=== PATIENT | male | born 2000 | race Caucasian/White ===

== ENCOUNTER 2023-04-30 03:31 | Emergency (ER) | payer SELFPAY ==
[2023-04-30 03:40] VITALS: BP 131/86; PULSE 74; RESP 16; TEMP 37.2; O2SAT 100
--- NOTE | 2023-04-30 04:09 | ED.GENADULT ---
HPI - General Adult General Chief complaint: Psychiatric Symptoms <Ladarius Cuevas MD - Last Filed: 04/30/23 07:00> Stated complaint: si <Ladarius Cuevas MD - Last Filed: 04/30/23 07:00> Time Seen by Provider: 04/30/23 03:45 <Ladarius Cuevas MD - Last Filed: 04/30/23 07:00> History of Present Illness HPI narrative: This is a 22-year-old male presenting ED with chief complaint of suicidal ideation. Patient has been using 30-40 pills of fentanyl daily for quite some time. He quit phenyl cold turkey 4 days ago. Since then he has been unable to sleep, he has had nausea vomiting increased anxiety, increased body pain. The symptoms got so bad that he could make it better he was thinking about walking out into traffic. That point he called EMS was brought to the hospital. At this time his condition is improved and he is resting comfortably in bed. He has no physical complaints. He is seeking help for his opiate use disorder. He has had a poor reaction to Suboxone several times in the past. <Ladarius Cuevas MD - Last Filed: 04/30/23 07:00> Related Data Allergies/adverse reactions: Allergies Allergy/AdvReac Type Severity Reaction Status Date / Time buprenorphine [From Suboxone] AdvReac Vomiting Verified 04/30/23 03:46 naloxone [From Suboxone] AdvReac Vomiting Verified 04/30/23 03:46 <Ladarius Cuevas MD - Last Filed: 04/30/23 07:00> [facility] Past Medical History Medical History: Medical History Opiate addiction <Ladarius Cuevas MD - Last Filed: 04/30/23 07:00> Exam Narrative: APPEARANCE: No apparent distress. patient is polite during the interview Head: atraumatic. EYES: EOMI, 3 mm equal and reactive NOSE: Atraumatic NECK: Trachea midline RESPIRATORY: No increased rate of breathing, CTAB CARDIOVASCULAR: RRR, ABDOMINAL: Non-distended, soft nontender no guarding or rebound MUSCULOSKELETAl: No obvious deformities NEURO: Alert. Moving 4/4 extremities SKIN:: Warm, dry. Normal color PSYCHIATRIC: Normal affect <Ladarius Cuevas MD - Last Filed: 04/30/23 07:00> Course Course Emergency Course: 07 Mason: signed out to the oncoming physician pending medical clearance and psych eval. <Ladarius Cuevas MD - Last Filed: 04/30/23 07:00> 0700 Zanna: signed out to the oncoming physician pending medical clearance and psych eval. 1005: Patient resting comfortably. Received some Tylenol for body aches. Patient has been evaluated by crisis and cleared for discharge and have made a safety plan. Patient will receive some antiemetics for home. No additional issues. <Luisito Major MD - Last Filed: 04/30/23 10:08> Vital Signs Vital signs: Vital Signs Temperature 99 F 04/30/23 03:40 Pulse Rate 74 04/30/23 03:40 Respiratory Rate 16 04/30/23 03:40 Blood Pressure 131/86 04/30/23 03:40 Pulse Oximetry 100 04/30/23 03:40 Oxygen Delivery Room Air 04/30/23 03:40 Temperature 99 F 04/30/23 03:40 Pulse Rate 74 04/30/23 03:40 Respiratory Rate 16 04/30/23 03:40 Blood Pressure 131/86 04/30/23 03:40 Pulse Oximetry 100 04/30/23 03:40 Oxygen Delivery Room Air 04/30/23 03:40 <Ladarius Cuevas MD - Last Filed: 04/30/23 07:00> Vital Signs Temperature 99 F 04/30/23 03:40 Pulse Rate 74 04/30/23 03:40 Respiratory Rate 16 04/30/23 03:40 Blood Pressure 131/86 04/30/23 03:40 Pulse Oximetry 100 04/30/23 03:40 Oxygen Delivery Room Air 04/30/23 03:40 Temperature 99 F 04/30/23 03:40 Pulse Rate 74 04/30/23 03:40 Respiratory Rate 16 04/30/23 03:40 Blood Pressure 131/86 04/30/23 03:40 Pulse Oximetry 100 04/30/23 03:40 Oxygen Delivery Room Air 04/30/23 03:40 <Luisito Major MD - Last Filed: 04/30/23 10:08> Medical Decision Making MDM Narrative Medical decision making narrative: -Presentation: 22-year-old male presenting w
[2023-04-30 04:13] LABS: Basophils Percent Auto 0.2 % (0.2-1.2); Eosinophils Percent Auto 0.1 % (0-4.4); Hematocrit 43.9 % (42.0-52.0); Hemoglobin 14.7 g/dL (14.0-18.0); Immature Granulocyte Absolute 0.02 K/mm3 (0.00-0.031); Immature Granulocyte Percent A 0.2 % (0-0.5); Lymphocytes Absolute Auto 1.83 K/mm3 (0.9-3.2); Lymphocytes Percent Auto 20.1 % (18.3-44.2); Mean Corpuscular HGB Conc 33.5 g/dl (32-36); Mean Corpuscular Hemoglobin 29.3 pg (26-34); Mean Corpuscular Volume 87.5 fl (80-100); Mean Platelet Volume 9.1 fl (7.4-10.4); Monocytes Absolute Auto 0.9 K/mm3 (0.1-0.6); Neutrophils Absolute Auto 6.3 K/mm3 (1.3-6.7); Neutrophils Percent Auto 69.4 % (45.5-73.1); Platelet Count Result 328 k/mm3 (150-375); Red Blood Count 5.02 M/mm3 (4.6-6.20); Red Cell Distribution Width 12.7 % (11.5-14.5); White Blood Count 9.1 K/mm3 (4.5-10.0)
[2023-04-30] MEDS: LORazepam (*CRX) 1 MG TABLET PO (04:13)
[2023-04-30 04:24] LABS: Ethanol < 10 mg/dL (<10)
[2023-04-30 04:26] LABS: Alanine Aminotransferase 44 U/L (6-50); Albumin Level 5.2 g/dL (3.5-5.1); Alkaline Phosphatase 93 U/L (38-126); Anion Gap 13 mmol/L (8-16); Aspartate Amino Transferase 47 U/L (17-59); Bilirubin,Total 0.9 mg/dL (0.2-1.3); Blood Urea Nitrogen 18 mg/dL (9-20); Carbon Dioxide 26 mmol/L (22-30); Chloride 101 mmol/L (98-107); Estimated CRCL calculation 85 ml/min; Estimated Glomerular Filt Rate > 60; Glucose 98 mg/dL (65-110); Potassium 4.3 mmol/L (3.4-5.0); Sodium 140 mmol/L (137-145)
--- NOTE | 2023-04-30 06:00 | PC.NURSE ---
When asked to provide urine sample pt stated I haven't peed in two days and reports he is unable to provide sample. This RN to attempt to obtain sample after providing pt with water.
[2023-04-30 07:13] LABS: Appearance Urine Clear (Clear); Bacteria Urine None Seen /hpf; Bilirubin Urine Negative (Negative); Blood Urine Negative (Negative); Color Urine Yellow (Yellow); Glucose Urine UA Negative (Negative); Hyaline Casts Urine Present /lpf; Ketones Urine 3+ mg/dL (Negative); Leukocyte Esterase Ur Negative LEU/UL (Negative); Nitrate Urine Negative (Negative); Non Pathogenic Casts >20; Protein Urine 1+ mg/dL (Negative); RBC Urine 0-2 /hpf (0-2); Specific Grav Ur 1.038 (1.001-1.035); Squamous Epithelial Cell Urine None seen /hpf (Few); WBC Urine 0-5 /hpf; pH Urine 5.5 (5.0-9.0)
[2023-04-30 07:14] LABS: Add Urine Microscopic? YES
--- NOTE | 2023-04-30 07:17 | PC.NURSE ---
Breakfast tray ordered for pt
[2023-04-30 07:22] LABS: Barbiturate Screen Urine Negative (Negative); Benzodiazepines Screen Urine Negative (Negative)
[2023-04-30 07:30] LABS: Cannabinoid Screen Urine Positive (Negative); Cocaine Screen Urine Negative (Negative); Methadone Screen Urine Negative (Negative); Opiate Screen Urine Negative (Negative); Phencyclidine Screen Urine Negative (Negative)
--- NOTE | 2023-04-30 07:43 | PC.NURSE ---
When asked if having any SI, pt responded, well yeah kan. States he is frustrated with the situation and just wants help and to feel better.
[2023-04-30 08:13] LABS: Amphetamine Screen Urine Positive (Negative)
[2023-04-30] MEDS: ACETAMINOPHEN 325 MG TABLET 650 MG PO (08:30)
[2023-04-30 10:10] VITALS: BP 132/74; PULSE 73; RESP 18; O2SAT 100
== END 2023-04-30 10:25 | disposition home or self-care (01) ==
PROVIDERS: Emergency Provider Emergency Medicine
DX: F11.13 Opioid abuse with withdrawal (principal); F32.A Depression, unspecified
CPT/HCPCS: 36415; 80053; 80307; 81001; 84443; 85025; 99284; A9270